=== PATIENT | female | born 1950 | race Caucasian/White ===

== ENCOUNTER 2017-08-26 10:40 | Outpatient (CLI) | payer MEDICARE, OTHER | END 2017-08-26 10:41 | disposition home or self-care (01) | LOC: BICMAMMO 10:40 | PROVIDERS: ATTEND Obstetrics & Gynecology | DX: Z13.820 Encounter for screening for osteoporosis; Z12.31 Encounter for screening mammogram for malignant neoplasm of breast; M85.80 Other specified disorders of bone density and structure, unspecified site | CPT/HCPCS: 77063; 77067; 77080 ==

== ENCOUNTER 2017-09-03 14:27 | Emergency (ER) | payer MEDICARE, OTHER ==
--- NOTE | 2017-09-03 15:14 | RAD ---
LEFT SHOULDER THREE VIEWS: History: Left shoulder pain. FINDINGS/IMPRESSION: There are degenerative changes in the acromioclavicular joint. No fracture, dislocation, or bony dest ruction identified. POS: EMY
--- NOTE | 2017-09-03 15:20 | RAD ---
LEFT ELBOW FOUR VIEWS: History: Left elbow pain. FINDINGS/IMPRESSION: No acute fracture, dislocation, or bony destruction is identified. POS: BAHMAN
--- NOTE | 2017-09-03 15:22 | RAD ---
THREE VIEWS FIRST DIGIT LEFT FOOT: History: Left toe pain. FINDINGS: Three views of the left great toe were obtained and demonstrate an area of lucency involving the late ral aspect of the distal phalanx first digit left foot. This may represent a possible nondisplaced fr acture. IMPRESSION: Area of lucency possibly representing a nondisplaced fractured distal phalanx first digit left foot. Correlate with clinical evaluation. No other significant abnormalities seen. POS: EMY
[2017-09-03] MEDS ORDERED: Bacitracin Zinc 1 Packet ONE (15:27)
== END 2017-09-03 15:40 | disposition home or self-care (01) ==
LOC: SCSER 14:27
DX: S92.425A Nondisplaced fracture of distal phalanx of left great toe, initial encounter for closed fracture (principal); S51.012A Laceration without foreign body of left elbow, initial encounter; S40.012A Contusion of left shoulder, initial encounter; I08.2 Rheumatic disorders of both aortic and tricuspid valves; Z79.899 Other long term (current) drug therapy; W10.9XXA Fall (on) (from) unspecified stairs and steps, initial encounter

== ENCOUNTER 2017-09-15 10:28 | Outpatient (CLI) | payer MEDICARE, OTHER ==
--- NOTE | 2017-09-15 13:11 | CT ---
CT CHEST WITHOUT CONTRAST: HISTORY: Fall. Injury to left shoulder/clavicle. COMPARISON: 09/03/2017 FINDINGS: There is a mild displaced fracture of the medial left clavicle, at the clavicular head, extending int o the clavicular-manubrial junction. Evidence of old injury to the manubrium. IMPRESSION: 1. Nondisplaced fracture of the medial left clavicle, at the clavicular-manubrial joint. 2. Extensive degenerative changes of the cervical spine, as well as a large posterior disk osteophyt e complex narrowing the spinal canal and right-sided neural foramen. Cervical spine MRI may be beneficial in this patient. CODE T POS: EMY
== END 2017-09-15 10:29 | disposition home or self-care (01) ==
LOC: SCSCT 10:28
PROVIDERS: ATTEND Family Medicine
DX: S43.402A Unspecified sprain of left shoulder joint, initial encounter (principal); S42.018A Nondisplaced fracture of sternal end of left clavicle, initial encounter for closed fracture; M47.892 Other spondylosis, cervical region
CPT/HCPCS: 71250

== ENCOUNTER 2018-08-18 08:10 | Outpatient (CLI) | payer MEDICARE, OTHER ==
--- NOTE | 2018-08-18 09:36 | MRI ---
FMRI Lower Ext Jt Rt WO Con: 08/18/2018 12:00 AM CLINICAL INDICATION: History of fall with right knee pain TECHNIQUE: Axial and coronal PD fat sat, sagittal and coronal T2 fat sat, coronal T1 and sagittal non fat sat PD images were obtained of the right knee. COMPARISON: Right knee radiograph dated August 09, 2018 FINDINGS: Fluid: Moderate joint capsular distention. Medial compartment: Medial meniscus: There is a complete radial tear involving the posterior root of the medial meniscus with partial medial extrusion. There is intrinsic meniscal degeneration involving the medial meniscus Medial collateral ligament: Intact. Medial femoral condyle cartilage: There is diffuse moderate chondral thinning with small marginal ost eophytes. Medial tibial plateau cartilage: There is moderate diffuse articular cartilage thinning. There are sm all marginal osteophytes Lateral compartment: Lateral meniscus: Intact. Lateral collateral ligament: Intact. Lateral femoral condyle cartilage: Intact. Mild osteophytosis Lateral tibial plateau cartilage: Mild chondrosis of the central lateral tibial plateau articular car tilage. Mild osteophytosis Posterolateral corner: Popliteus tendon: Intact. Popliteofibular ligament: Intact. Proximal tibiofibular joint: Within normal limits. Anterior compartment: Alignment: Normal. Quadriceps tendon: Intact. Patellar tendon: Intact. Retinaculum: Medial intact. Lateral intact. Patellar cartilage: Moderate diffuse thinning involving the medial patellar facet and median patellar ridge. Mild osteophytosis Trochlea: There is mild diffuse thinning of the trochlear articular cartilage. Mild osteophytosis. P lica: None. Hoffa fat pad: Normal. Intercondylar compartment: Anterior cruciate ligament: Intact. Posterior cruciate ligament: Intact. Bones (other than subarticular marrow): Normal. Muscles: Normal. Vessels: Normal. Nerves: Normal. IMPRESSION: 1. Mild osteoarthrosis of the right knee. 2. Medial meniscal tear
== END 2018-08-18 08:11 | disposition home or self-care (01) ==
LOC: MRI 08:10
PROVIDERS: ATTEND Family Medicine
DX: M25.561 Pain in right knee (principal); M17.11 Unilateral primary osteoarthritis, right knee; S83.241A Other tear of medial meniscus, current injury, right knee, initial encounter

== ENCOUNTER 2018-09-16 00:12 | Outpatient (CLI) | payer MEDICARE, OTHER ==
[2018-09-16 11:49] LABS: #Eosinphils 0.1 thou/uL (0.0-0.7); #Lymphocytes 1.4 thou/uL (1.20-3.40); #Monocytes 0.4 thou/uL (0.11-0.59); #Neutrophils 4.1 thou/uL (1.40-6.50); %Basophils 0.6 % (0.0-1.0); %Eosinophils 1.1 % (0.0-10.0); %Lymphocytes 23.7 % (21.0-51.0); %Monocytes 7.3 % (0.0-10.0); %Neutrophils 67.2 % (42.0-75.0); Hemoglobin 13.8 g/dL (12.0-16.0); Mean Corpuscular Hemoglobin 31.3 pg (27.0-31.0); Mean Corpuscular Volume 92.1 fL (78.0-98.0); Mean Platelet Volume 6.7 fL (7.4-10.4); Platelet Count 215 thou/uL (130-400); RBC Distribution Width 12.5 % (11.5-14.5); Red Blood Cell (RBC) Count 4.42 mill/uL (4.20-5.40); White Blood Cell (WBC) Count 6.1 thou/uL (4.8-10.8)
[2018-09-16 12:03] LABS: Anion Gap 12 mmol/L (10-20); BUN (Urea Nitrogen) 15 mg/dL (9.8-20.1); Calc. Creatinine Clearance 0 mL/min (70-130); Calcium 9.9 mg/dL (7.8-10.44); Carbon Dioxide 30 mmol/L (23-31); Chloride 103 mmol/L (98-107); Estimated GFR-MDRD 73; Glucose 91 mg/dL (80-115); Potassium 4.3 mmol/L (3.5-5.1); Sodium 141 mmol/L (136-145)
--- NOTE | 2018-09-17 07:22 | EKG ---
Test Reason : Blood Pressure : / mmHG Vent. Rate : 066 BPM Atrial Rate : 066 BPM P-R Int : 152 ms QRS Dur : 078 ms QT Int : 430 ms P-R-T Axes : 064 026 034 degrees QTc Int : 450 ms Normal sinus rhythm Cannot rule out Anterior infarct , age undetermined Abnormal ECG When compared with ECG of 14-JUN-2016 00:15, Nonspecific T wave abnormality no longer evident in Inferior leads Nonspecific T wave abnormality no longer evident in Lateral leads Confirmed by MAHSA JEAN ([id number]) on 09/17/2018 7:21:49 AM Referred By: SANDRA Confirmed By:MAHSA JEAN
== END 2018-09-16 00:13 | disposition home or self-care (01) ==
LOC: LABBT 00:12
PROVIDERS: ATTEND Orthopaedic Surgery
DX: Z01.818 Encounter for other preprocedural examination (principal); S83.241A Other tear of medial meniscus, current injury, right knee, initial encounter
CPT/HCPCS: 80048; 85025; 93005; 93010

== ENCOUNTER 2018-09-21 06:27 | Day surgery (SDC) | payer MEDICARE, OTHER ==
[2018-09-16 10:13] VITALS: BMI 30.9
[2018-09-21] MEDS ORDERED: Scopolamine 1.5 mg/72 hour Patch ONE (08:02)
[2018-09-21] MEDS ORDERED: PROPOFOL 20 ML ONE (08:14)
[2018-09-21] MEDS ORDERED: Bupivacaine HCl 0.5%/Epinephrine 1:200,000/PF 30 ml Vial ONE ×2 (09:05→16:02)
[2018-09-21] MEDS ORDERED: Midazolam HCl 2 mg/2 ml Vial ONE (09:20)
[2018-09-21] MEDS ORDERED: Propofol 500 MG/50 ML VIAL ONE (09:23)
[2018-09-21] MEDS ORDERED: Ondansetron PF 4 MG/2 ML Vial ONE (15:13)
[2018-09-21] MEDS ORDERED: PROPOFOL 200 MG/20 ML VIAL ONE (15:13)
[2018-09-21] MEDS ORDERED: Ketorolac Tromethamine 30 MG/ML VIAL ONE (15:13)
[2018-09-21] MEDS ORDERED: Lidocaine 1% PF 5 ML VIAL ONE (15:13)
[2018-09-21] MEDS ORDERED: Lidocaine 2% w/Epinephrine 1:200K 20 ML VIAL ONE (16:02)
--- NOTE | 2018-09-21 16:50 | OP ---
DATE OF PROCEDURE: 09/21/2018 PREOPERATIVE DIAGNOSIS: Right medial meniscus tear. 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 PROCEDURE PERFORMED: Arthroscopic partial medial meniscectomy. ANESTHESIA: General. BLOOD LOSS: Minimal. SPECIMEN: None. DRAIN: None. COMPLICATION: None. FINDINGS OF SURGERY: Intact lateral compartment. Intact patellofemoral joint. 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 DESCRIPTION OF PROCEDURE: The patient was taken to the operating room, where general anesthesia was induced. She received Ancef preoperatively. Right leg was prepped and draped in usual sterile fashion. No tourniquet was used. Scope was placed in the lateral portal and probe was placed in the medial portal. Findings were as described above. I performed a partial medial meniscectomy using small basket forceps and smoothed this using a 4.0 full radius resector. I then probed the meniscus and confirmed the remainder of the meniscus was stable. Knee was irrigated. I checked both compartments and intercondylar notch. I swept the gutters and suprapatellar pouch. I irrigated the knee and sterile dressings were applied. Job ID: [id number]
== END 2018-09-21 11:35 | disposition home or self-care (01) ==
LOC: SDC 06:27
PROVIDERS: ATTEND Orthopaedic Surgery
PROC: 0SBC4ZZ Excision of Right Knee Joint, Percutaneous Endoscopic Approach (ICD-10-PCS; principal; 2018-09-21)
DX: S83.231A Complex tear of medial meniscus, current injury, right knee, initial encounter (principal); M94.261 Chondromalacia, right knee; F32.9 Major depressive disorder, single episode, unspecified; G47.00 Insomnia, unspecified; M17.11 Unilateral primary osteoarthritis, right knee; Z79.82 Long term (current) use of aspirin; Z79.899 Other long term (current) drug therapy; Z91.040 Latex allergy status; Z98.890 Other specified postprocedural states; X50.1XXA Overexertion from prolonged static or awkward postures, initial encounter
CPT/HCPCS: J0131; J0670; J0690; J2250; J2704

== ENCOUNTER 2020-08-31 10:02 | Outpatient (CLI) | payer MEDICARE, OTHER | END 2020-08-31 10:03 | disposition home or self-care (01) | LOC: SCSRAD 10:02 | PROVIDERS: ATTEND Internal Medicine Rheumatology | DX: M25.551 Pain in right hip (principal); M25.552 Pain in left hip | CPT/HCPCS: 72170 ==

== ENCOUNTER 2021-05-06 14:44 | Outpatient (CLI) | payer MEDICARE, OTHER ==
[2021-05-06 16:50] LABS: #Eosinphils 0.1 10x3/uL (0.0-0.5); #Monocytes 0.5 10x3/uL (0.0-1.1); #Neutrophils 4.2 10x3/uL (1.5-8.4); %Basophils 0.7 % (0.0-2.0); %Eosinophils 1.4 % (0.0-6.0); %Lymphocytes 17.4 % (18.0-47.0); %Monocytes 8.5 % (0.0-10.0); %Neutrophils 71.3 % (40.0-75.0); Hemoglobin 13.3 g/dL (12.0-15.5); Mean Corpuscular HGB CONC 32.9 g/dL (32.0-36.0); Mean Corpuscular Hemoglobin 31.1 pg (27.0-33.0); Mean Corpuscular Volume 94.6 fl (81.6-98.3); Platelet Count 200 10x3/uL (150-450); RBC Distribution Width 13.2 % (11.5-14.5); Red Blood Cell (RBC) Count 4.27 10x6/uL (3.90-5.03); White Blood Cell (WBC) Count 5.9 10x3/uL (3.5-10.5)
[2021-05-06 17:13] LABS: Anion Gap 15 mmol/L (10-20); BUN (Urea Nitrogen) 22 mg/dL (9.8-20.1); Calc. Creatinine Clearance 0 mL/min (70-130); Calcium 9.4 mg/dL (7.8-10.44); Carbon Dioxide 26 mmol/L (23-31); Chloride 105 mmol/L (98-107); Glucose 110 mg/dL (83-110); Potassium 4.9 mmol/L (3.5-5.1); Sodium 141 mmol/L (136-145)
[2021-05-07 08:59] LABS: SARS-CoV-2 PCR by NAA Not Detected (NotDetected)
== END 2021-05-06 14:45 | disposition home or self-care (01) ==
LOC: LABBT 14:44
PROVIDERS: ATTEND Orthopaedic Surgery
DX: Z01.818 Encounter for other preprocedural examination (principal); Z20.822 Contact with and (suspected) exposure to COVID-19
CPT/HCPCS: 80048; 85025; 93005; U0003; U0005; 93010

== ENCOUNTER 2021-05-09 07:16 | Day surgery (SDC) | payer MEDICARE, OTHER ==
[2021-05-07 15:12] VITALS: BMI 31.7
[2021-05-09] MEDS ORDERED: PROPOFOL 20 ML ONE (08:35)
[2021-05-09] MEDS ORDERED: Scopolamine 1.5 mg/72 hour Patch ONE (09:36)
[2021-05-09] MEDS ORDERED: Fentanyl 100 MCG/2 ML VIAL ONE (09:44)
[2021-05-09] MEDS ORDERED: Dexmedetomidine 200 MCG/2 ML VIAL ONE (09:44)
[2021-05-09] MEDS ORDERED: Midazolam HCl 2 mg/2 ml Vial ONE (09:44)
[2021-05-09] MEDS ORDERED: ceFAZolin 2 GM/DEX 5% 100 ML BAG ONE (09:56)
[2021-05-09] MEDS ORDERED: Dexamethasone 20 MG/5 ML VIAL ONE (10:22)
[2021-05-09] MEDS ORDERED: Ondansetron PF 4 MG/2 ML Vial ONE (10:22)
[2021-05-09] MEDS ORDERED: Bupivacaine HCl 0.5%/Epinephrine 1:200,000/PF 30 ml Vial ONE (10:22)
[2021-05-09] MEDS ORDERED: Lidocaine 2% w/Epinephrine 1:200K 20 ML VIAL ONE (10:22)
[2021-05-09] MEDS ORDERED: Lidocaine 1% PF 5 ML VIAL ONE (10:22)
[2021-05-09] MEDS ORDERED: PROPOFOL 200 MG/20 ML VIAL ONE (10:22)
[2021-05-09] MEDS ORDERED: Propofol 500 MG/50 ML VIAL ONE (10:31)
== END 2021-05-09 13:30 | disposition home or self-care (01) ==
LOC: SDC 07:16
PROVIDERS: ATTEND Orthopaedic Surgery
PROC: 0SBD4ZZ Excision of Left Knee Joint, Percutaneous Endoscopic Approach (ICD-10-PCS; principal; 2021-05-09)
DX: S83.232A Complex tear of medial meniscus, current injury, left knee, initial encounter (principal); M94.262 Chondromalacia, left knee; M17.12 Unilateral primary osteoarthritis, left knee; M17.31 Unilateral post-traumatic osteoarthritis, right knee; K21.9 Gastro-esophageal reflux disease without esophagitis; Z79.899 Other long term (current) drug therapy; Z91.048 Other nonmedicinal substance allergy status
CPT/HCPCS: J1100; J2250; J2405; J2704; J3010

== ENCOUNTER 2022-03-21 10:20 | Outpatient (CLI) | payer MEDICARE, OTHER ==
[2022-03-21 11:52] LABS: #Monocytes 0.4 10x3/uL (0.0-1.1); #Neutrophils 2.7 10x3/uL (1.5-8.4); %Basophils 0.8 % (0.0-2.0); %Eosinophils 0.8 % (0.0-6.0); %Lymphocytes 19.1 % (18.0-47.0); %Monocytes 9.3 % (0.0-10.0); %Neutrophils 68.7 % (40.0-75.0); Hemoglobin 13.9 g/dL (12.0-15.5); Mean Corpuscular HGB CONC 34.6 g/dL (32.0-36.0); Mean Corpuscular Hemoglobin 31.6 pg (27.0-33.0); Mean Corpuscular Volume 91.4 fl (81.6-98.3); Platelet Count 165 10x3/uL (150-450); RBC Distribution Width 13.3 % (11.5-14.5); White Blood Cell (WBC) Count 3.9 10x3/uL (3.5-10.5)
[2022-03-21 12:00] LABS: Anion Gap 17 mmol/L (10-20); BUN (Urea Nitrogen) 16 mg/dL (9.8-20.1); Calc. Creatinine Clearance 0 mL/min (70-130); Carbon Dioxide 21 mmol/L (23-31); Chloride 106 mmol/L (98-107); Estimated GFR 78; Glucose 105 mg/dL (83-110); Potassium 4.6 mmol/L (3.5-5.1); Sodium 139 mmol/L (136-145)
[2022-03-21 12:11] LABS: INR-International Normal Ratio 0.9; Prothrombin Time 10.2 sec (9.5-12.1)
== END 2022-03-21 10:21 | disposition home or self-care (01) ==
LOC: LABBT 10:20
PROVIDERS: ATTEND Orthopaedic Surgery
DX: Z01.818 Encounter for other preprocedural examination (principal); M17.31 Unilateral post-traumatic osteoarthritis, right knee
CPT/HCPCS: 80048; 85025; 85610; 87081; 93005; 93010

== ENCOUNTER 2022-08-22 09:30 | Outpatient (CLI) | payer MEDICARE, OTHER | END 2022-08-22 09:31 | disposition home or self-care (01) | LOC: SCSMRI 09:30 | PROVIDERS: ATTEND Family Medicine | DX: G25.2 Other specified forms of tremor (principal); I67.82 Cerebral ischemia | CPT/HCPCS: 70553; 82565 ==

== ENCOUNTER 2023-02-06 08:54 | Outpatient (CLI) | payer MEDICARE, OTHER | END 2023-02-06 08:55 | disposition home or self-care (01) | LOC: SCSMRI 08:54 | PROVIDERS: ATTEND Family Medicine | DX: M25.571 Pain in right ankle and joints of right foot (principal); S93.491A Sprain of other ligament of right ankle, initial encounter; M94.271 Chondromalacia, right ankle and joints of right foot; M67.871 Other specified disorders of synovium, right ankle and foot; M72.2 Plantar fascial fibromatosis ==

== ENCOUNTER 2023-05-19 10:43 | Outpatient (CLI) | payer MEDICARE, OTHER | END 2023-05-19 10:44 | disposition home or self-care (01) | LOC: RAD 10:43 | PROVIDERS: ATTEND Otolaryngology | DX: R13.14 Dysphagia, pharyngoesophageal phase (principal); K21.9 Gastro-esophageal reflux disease without esophagitis | CPT/HCPCS: 74230 ==

== ENCOUNTER 2023-05-28 14:17 | Outpatient (CLI) | payer MEDICARE, OTHER ==
[2023-05-28 16:13] LABS: #Basophils 0.1 10x3/uL (0.0-0.2); #Eosinphils 0.1 10x3/uL (0.0-0.5); #Monocytes 0.4 10x3/uL (0.0-1.1); #Neutrophils 3.1 10x3/uL (1.5-8.4); %Basophils 1.1 % (0.0-2.0); %Eosinophils 1.3 % (0.0-6.0); %Lymphocytes 20.9 % (18.0-47.0); %Neutrophils 68.3 % (40.0-75.0); Hematocrit 40.9 % (34.9-44.5); Hemoglobin 14.1 g/dL (12.0-15.5); Mean Corpuscular HGB CONC 34.5 g/dL (32.0-36.0); Mean Corpuscular Hemoglobin 31.8 pg (27.0-33.0); Mean Corpuscular Volume 92.1 fl (81.6-98.3); Mean Platelet Volume 9.1 fl (7.4-10.4); Platelet Count 188 10x3/uL (150-450); RBC Distribution Width 13.2 % (11.5-14.5); Red Blood Cell (RBC) Count 4.44 10x6/uL (3.90-5.03); White Blood Cell (WBC) Count 4.5 10x3/uL (3.5-10.5)
[2023-05-28 16:29] LABS: Anion Gap 11 mmol/L (10-20); BUN (Urea Nitrogen) 18 mg/dL (9.8-20.1); Calc. Creatinine Clearance 0 mL/min (70-130); Calcium 9.4 mg/dL (7.8-10.44); Carbon Dioxide 28 mmol/L (23-31); Estimated GFR 79; Glucose 108 mg/dL (83-110)
[2023-05-28 17:01] LABS: Prothrombin Time 10.3 sec (9.5-12.1)
[2023-05-28 17:26] LABS: Chloride 105 mmol/L (98-107); Potassium 4.3 mmol/L (3.5-5.1); Sodium 140 mmol/L (136-145)
== END 2023-05-28 14:18 | disposition home or self-care (01) ==
LOC: LABBT 14:17
PROVIDERS: ATTEND Orthopaedic Surgery
DX: Z01.818 Encounter for other preprocedural examination (principal); M17.11 Unilateral primary osteoarthritis, right knee
CPT/HCPCS: 80048; 85025; 85610; 87081; 93005; 93010